=== PATIENT | female | born 1940 ===

== ENCOUNTER 2025-01-04 05:24 | Inpatient (IN) | payer OTHER ==
[2024-12-30 11:43] VITALS: BP 130/81
[~2025-01-04] VITALS: Ht 157.5 cm; Wt 50.8 kg
[~2025-01-04 05:24] MED LIST: COZAAR50 MG PO; KAPSPARGO SPRIN25 MG; LEVOTHYROXINE125 MC1 PO; LIPITOR40 M1; XARELTO20 MG
[2025-01-04] MEDS ORDERED: HEMOSTATIC MATRIX 1 KIT KIT TOP ONE (07:01)
[2025-01-04] MEDS ORDERED: POVIDONE-IODINE 118 ML BOTT TOP ONE (07:01)
[2025-01-04] MEDS ORDERED: DIBUCAINE 30 GM TUBE ONE (07:01)
[2025-01-04] MEDS ORDERED: LIDOCAINE HCL 1%/EPINEPHRINE 20ML VIAL IJ ONE (07:01)
[2025-01-04] MEDS ORDERED: BUPIVACAINE HCL/MPF 0.5% 30ML VIAL ONE (07:01)
[2025-01-04] MEDS ORDERED: CEFTRIAXONE SODIUM 2,000 MG VIAL ONE (07:02)
[2025-01-04] MEDS ORDERED: METRONIDAZOLE/SODIUM CHLORIDE 500 MG/100 ML PIGGYBACK IV ONE (07:02)
[2025-01-04] MEDS ORDERED: ONDANSETRON HCL 2 MG/ML VIAL IV PRN (11:45)
[2025-01-04] MEDS ORDERED: MORPHINE SULFATE 4 MG/ML CARTRIDGE IV PRN (11:45)
[2025-01-04] MEDS ORDERED: 0.9 % SODIUM CHLORIDE 1,000 ML IV SCH (11:45)
[2025-01-04] MEDS ORDERED: MORPHINE SULFATE 2 MG/ML CARTRIDGE IV ONE (12:00)
[2025-01-04] MEDS ORDERED: SIMETHICONE 125 MG CAPSULE PO SCH (13:00)
[2025-01-04] MEDS ORDERED: HYOSCYAMINE SULFATE 0.125 MG TAB.SUBL SL SCH (13:00)
[2025-01-04] MEDS ORDERED: ACETAMINOPHEN 500 MG GEL..CAP PO SCH (14:00)
[2025-01-04 14:09] VITALS: BP 130/65
[2025-01-04] MEDS ORDERED: ENALAPRILAT DIHYDRATE 1.25 MG/ML VIAL IV PRN (15:30)
[2025-01-04 15:53] VITALS: BP 160/87
[2025-01-04] MEDS ORDERED: ATORVASTATIN CALCIUM 40 MG TABLET PO SCH (17:00)
[2025-01-04] MEDS ORDERED: GABAPENTIN 300 MG CAPSULE PO SCH (17:00)
[2025-01-04] MEDS ORDERED: POLYETHYLENE GLYCOL 3350 17 GM BLIST.PACK PO SCH (17:00)
[2025-01-04] MEDS ORDERED: METOCLOPRAMIDE HCL 5 MG/ML VIAL IV SCH (17:00)
[2025-01-04 20:00] VITALS: BP 129/66; O2SAT 97
[2025-01-04] MEDS ORDERED: FAMOTIDINE/PF 20 MG/2 ML VIAL IV PUSH SCH (21:00)
[2025-01-04 23:56] VITALS: BP 105/46; O2SAT 97
[2025-01-05] MEDS ORDERED: LEVOTHYROXINE SODIUM 125 MCG TABLET PO SCH (06:00)
[2025-01-05 06:57] LABS: HEMATOCRIT 33.3 % (36.0-45.00); HEMOGLOBIN 11.4 g/dL (12.0-15.00); MEAN CELL VOLUME 94.5 fL (80.00-100.00); MEAN CORPUSCULAR HEMOGLOBIN 32.3 pg (27.00-32.0); MEAN CORPUSCULAR HGB CONC 34.2 g/dl (32.0-36.0); RED BLOOD COUNT 3.52 M/uL (4.00-6.00); RED CELL DISTRIBUTION WIDTH 17.2 % (11.5-14.5)
[2025-01-05 07:01] LABS: PLATELET COUNT 100 K/uL (150-450)
[2025-01-05 07:11] LABS: ALBUMIN 2.4 gm/dL (3.4-5.0); CALCIUM 8.5 mg/dL (8.5-10.1); CREATININE SERUM 0.5 mg/dL (0.55-1.02); GFR 117.26; MAGNESIUM 1.7 mg/dL (1.8-2.4); PHOSPHOROUS 3.4 mg/dL (2.5-4.9); POTASSIUM 4.08 mEq/L (3.5-5.1)
[2025-01-05] MEDS ORDERED: INTESTINEX680 M1 PO (07:50)
[2025-01-05] MEDS ORDERED: TYLENOL ARTHRI650 MG PO (07:50)
[2025-01-05 09:00] VITALS: BP 138/72; O2SAT 99
[2025-01-05] MEDS ORDERED: LACTOBACILLUS ACIDOPHILUS 1 CAP CAP PO SCH (09:00)
[2025-01-05] MEDS ORDERED: METOPROLOL SUCCINATE 25 MG TAB.SR.24H PO SCH (09:00)
[2025-01-05] MEDS ORDERED: LOSARTAN POTASSIUM 50 MG TABLET PO SCH (09:00)
[2025-01-05] MEDS ORDERED: ENOXAPARIN SODIUM 40 MG/0.4 ML SYRINGE SUBCUTANEO SCH (17:00)
[2025-01-06] MEDS ORDERED: ENOXAPARIN SODIUM 40 MG/0.4 ML SYRINGE SUBCUTANEO SCH (09:00)
== END 2025-01-05 12:09 | disposition home or self-care (01) | DRG 331 ==
LOC: CIR.AMB 05:24 → EDSTATUS 11:15 → SURH 11:15 → OB/GYN 12:58 → O/R 12:58 → OB/GYN 13:05
PROVIDERS: ADMIT Surgery; ATTEND Surgery
PROC: 0DBP7ZZ Excision of Rectum, Via Natural or Artificial Opening (ICD-10-PCS; 2025-01-04)
PROC: 0DUR0JZ Supplement Anal Sphincter with Synthetic Substitute, Open Approach (ICD-10-PCS; 2025-01-04)
PROC: 0JQC0ZZ Repair Pelvic Region Subcutaneous Tissue and Fascia, Open Approach (ICD-10-PCS; principal; 2025-01-04 09:00)
DX: K62.3 Rectal prolapse (principal); N81.5 Vaginal enterocele; N81.6 Rectocele; K40.90 Unilateral inguinal hernia, without obstruction or gangrene, not specified as recurrent